=== PATIENT | female | born 1995 ===

== ENCOUNTER 2016-11-10 11:03 | Emergency (ER) | payer OTHER ==
[2016-11-10] MEDS ORDERED: Morphine INJ* 2 MG/ML 1 ML SYRINGE IV ONE (11:20)
[2016-11-10 11:33] LABS: Hematocrit 43 % (35-47); Hemoglobin 14.5 g/dl (12.0-16.0); Mean Corpuscular HGB Conc 34 g/dl (31-36); Mean Corpuscular Hemoglobin 31 pg (27-31); Mean Corpuscular Volume 90 fL (80-97); Mean Platelet Volume 7 um3 (7.4-10.4); Red Blood Count 4.74 10^6/ul (4.0-5.4); Red Cell Distribution Width 13 % (10.5-15); White Blood Count 7.5 10^3/ul (3.5-10.8)
[2016-11-10 11:49] LABS: ALT 32 U/L (7-52); AST 25 U/L (13-39); Albumin 4.5 g/dL (3.2-5.2); Alkaline Phosphatase 46 U/L (34-104); Anion Gap 9 mmol/L (2-11); BUN/Creatinine Ratio 15.6 (8-20); Blood Urea Nitrogen 15 mg/dL (6-24); CO2 Carbon Dioxide 25 mmol/L (22-32); Calcium 9.7 mg/dL (8.6-10.3); Chloride 102 mmol/L (101-111); Creatine Kinase 396 U/L (10-223); EGFR African American 93.5 (>60); EGFR Non-African American 72.7 (>60); Globulin 3.9 g/dL (2-4); Glucose 128 mg/dL (70-100); Magnesium 2.3 mg/dL (1.9-2.7); Potassium 3.4 mmol/L (3.5-5.0); Sodium 136 mmol/L (133-145); Total Protein 8.4 g/dL (6.4-8.9)
--- NOTE | 2016-11-10 11:58 | RAD ---
HISTORY: Chest pain COMPARISONS: None VIEWS:1: Single frontal portable view of the chest at 11:35 AM FINDINGS: LINES AND TUBES: None. CARDIOMEDIASTINAL SILHOUETTE: The cardiomediastinal silhouette is normal for portable technique. PLEURA: The costophrenic angles are sharp. No pleural abnormalities are noted. LUNG PARENCHYMA: The lungs are clear. ABDOMEN: The upper abdomen is clear. There is no subphrenic gas. BONES AND SOFT TISSUES: No bone or soft tissue abnormalities are noted. IMPRESSION: NO ACTIVE CARDIOPULMONARY DISEASE.
[2016-11-10 12:21] LABS: TSH (Thyroid Stimulating Horm) 0.53 mcIU/mL (0.34-5.60)
[2016-11-10 13:47] LABS: Urine Bacteria Absent (Absent); Urine Bilirubin Negative (Negative); Urine Glucose Negative (Negative); Urine Nitrite Negative (Negative)
[2016-11-10] MEDS ORDERED: Pantoprazole IV* 40 MG IV ONE (15:13)
[2016-11-10 15:38] LABS: Amylase 60 U/L (29-103)
[2016-11-10 15:49] VITALS: BP 113/76
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
== END 2016-11-10 16:00 | disposition home or self-care (01) ==
LOC: ED 11:03
DX: R07.9 Chest pain, unspecified (principal); R10.13 Epigastric pain; F41.9 Anxiety disorder, unspecified
CPT/HCPCS: 36415; 71010; 80053; 81003; 81015; 82150; 82550; 83605; 83735; 84443; 84484; 84702; 85025; 85379; 85610; 85730; 93005; 96374; 96375; 99284; J2270

== ENCOUNTER 2017-11-19 06:30 | Emergency (ER) | payer OTHER ==
[2017-11-19 07:02] LABS: ABS Basophils 0 10^3/ul (0-0.2); ABS Eosinophils 0.1 10^3/ul (0-0.6); ABS Lymphocytes 1.5 10^3/ul (1.0-4.8); ABS Monocytes 0.5 10^3/ul (0-0.8); ABS Neutrophils 3.3 10^3/ul (1.5-7.7); ABS Nucleated RBC 0 10^3/ul; Eosinophil % 1.8 % (0-6); Hematocrit 38 % (35-47); Hemoglobin 13.2 g/dl (12.0-16.0); Lymphocyte % 28.1 % (25-47); Mean Corpuscular HGB Conc 35 g/dl (31-36); Mean Corpuscular Hemoglobin 31 pg (27-31); Mean Corpuscular Volume 90 fL (80-97); Nucleated Red Blood Cells % 0.1; Platelet Count 283 10^3/ul (150-450); Red Blood Count 4.24 10^6/ul (4.0-5.4); Red Cell Distribution Width 14 % (10.5-15); White Blood Count 5.4 10^3/ul (3.5-10.8)
--- NOTE | 2017-11-19 09:06 | RAD ---
INDICATION: Pelvic pain and dyspareunia COMPARISON: None. TECHNIQUE: Real-time transabdominal and transvaginal ultrasound examination of the female pelvis including grayscale and Doppler color flow imaging. FINDINGS: Uterus: The retroverted uterus measures 7.6 x 4.4 x 4.8 cm. The anterior fundus of the uterus is heterogeneous in appearance and there is a questionable poorly circumscribed mass measuring just under 4 cm in greatest dimension. The endometrial stripe measures 10 mm in thickness. Ovaries: The right and left ovary measure 3.7 x 1.9 x 2.0 cm and 2.9 x 1.6 x 1.7 cm, respectively. Normal arterial and venous waveforms are identified. Appearance is within normal limits for the patient's age. There is no free fluid in the cul-de-sac. IMPRESSION: The uterine fundus is heterogeneous and may exhibit a poorly circumscribed isoechoic mass. The differential diagnosis includes a poorly demarcated uterine fibroid versus adenomyosis. If clinically warranted superior characterization can be made with contrast-enhanced MRI of the pelvis.
[2017-11-19] MEDS ORDERED: Ketorolac INJ* 30 MG/ML 1 ML VIAL IV PUSH ONE (09:16)
[2017-11-19 09:27] LABS: Urine Appearance Clear; Urine Blood Negative (Negative); Urine Color Yellow; Urine Ketones Negative (Negative); Urine Protein Negative (Negative); Urine Urobilinogen Negative (Negative)
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
[2017-11-19 10:19] VITALS: BP 127/69
== END 2017-11-19 10:18 | disposition home or self-care (01) ==
LOC: ED 06:30
DX: N83.299 Other ovarian cyst, unspecified side (principal); R10.9 Unspecified abdominal pain; R11.0 Nausea
CPT/HCPCS: 36415; 76830; 80053; 81003; 83605; 83690; 84702; 85025; 86140; 87040; 87480; 87491; 87510; 87591; 87661; 96374; 99282; J1885